=== PATIENT | male | born 1965 | race Two or more races ===

== ENCOUNTER 2016-09-28 09:51 | Inpatient (IN) | payer OTHER ==
[2016-09-28 10:21] VITALS: BMI 35.1
--- NOTE | 2016-09-28 13:07 | HP ---
COWS - Scale Resting Pulse: 1= [place] 81-100 Sweatin=Flushed/Facial Moisture Restless Observation: 1= Difficult to Sit Still Pupil Size: 0= Normal to Room Light Bone or Joint Aches: 2= Severe Diffuse Aches Runny Nose/ Eye Tearin= Runny Nose/Eyes GI Upset > 30mins: 2= Nausea/Diarrhea Tremor Observation: 2= Slight Tremor Visible Yawning Observation: 2= >3x During Session Anxiety or Irritability: 2=Irritable/Anxious Goose Flesh Skin: 3=Piloerection COWS Score: 19 Admission ROS S - HPI Chief Complaint: I am here to detox Allergies/Adverse Reactions: Allergies Allergy/AdvReac Type Severity Reaction Status Date / Time penicillin G Allergy Severe Hives Verified 09/28/16 11:02 History of Present Illness: pt is a Exam Limitations: No Limitations - Ebola screening Have you traveled outside of the country in the last 21 days: No Have you had contact with anyone from an Ebola affected area: No Have you been sick,other than usual withdrawal symptoms: No Do you have a fever: No - Review of Systems Constitutional: Chills, Diaphoresis, Night Sweats EENT: reports: Tearing, Nose Congestion Respiratory: reports: No Symptoms reported Cardiac: reports: No Symptoms Reported GI: reports: Constipated, Poor Appetite, Poor Fluid Intake : reports: No Symptoms Reported Musculoskeletal: reports: Back Pain, Joint Pain Integumentary: reports: Flushing, Sweating Neuro: reports: Tingling, Tremors Endocrine: reports: Excessive Sweating, Flushing, Intolerance to Cold, Intolerance to Heat Hematology: reports: No Symptoms Reported Psychiatric: reports: Judgement Intact, Mood/Affect Appropiate, Orientated x3, Agitated, Anxious Other Systems: Reviewed and Negative Patient History - Patient Medical History Hx Anemia: No Hx Asthma: Yes Hx Chronic Obstructive Pulmonary Disease (COPD): No Hx Cancer: No Hx Cardiac Disorders: No Hx Congestive Heart Failure: No Hx Hypertension: No Hx Hypercholesterolemia: No Hx Pacemaker: No HX Cerebrovascular Accident: No Hx Seizures: No Hx Dementia: No Hx Diabetes: No Hx Gastrointestinal Disorders: No Hx Liver Disease: No Hx Genitourinary Disorders: No Hx Sexually Transmitted Disorders: No Hx Renal Disease (ESRD): No Hx Thyroid Disease: No Hx Human Immunodeficiency Virus (HIV): No Hx Hepatitis C: No Hx Depression: Yes Hx Suicide Attempt: No Hx Bipolar Disorder: No Hx Schizophrenia: No Other Medical History: anxiety/ - Patient Surgical History Past Surgical History: No Hx Neurologic Surgery: No Hx Cataract Extraction: No Hx Cardiac Surgery: No Hx Lung Surgery: No Hx Breast Surgery: No Hx Breast Biopsy: No Hx Abdominal Surgery: No Hx Appendectomy: No Hx Cholecystectomy: No Hx Genitourinary Surgery: No Hx Section: No Hx Orthopedic Surgery: No Anesthesia Reaction: No - PPD History Previous Implant?: Yes Documented Results: Positive w/o proof Implanted On Prior [facility] Admission?: No - Reproductive History Patient is a Female of Child Bearing Age (11 -55 yrs old): No - Smoking Cessation Smoking history: Former smoker Have you smoked in the past 12 months: Yes Aproximately how many cigarettes per day: 6 If you are a former smoker, when did you quit?: 8 mos. ago Hx Chewing Tobacco Use: Yes Initiated information on smoking cessation: Yes 'Breaking Loose' booklet given: 09/28/16 - Substance & Tx. History Hx Alcohol Use: No Hx Substance Use: Yes Substance Use Type: Heroin Hx Substance Use Treatment: Yes - Substances Abused Heroin Route: Injection Frequency: Daily Amount used: 7-8 bags Age of first use: 22 Date of Last Use: 09/28/16 Family Disease History - Family Disease History Family History: Denies Admission Physical Exam S - Vital Signs Vital Signs: Vital Signs - 24 hr 09/28/16 10:18 Temperature 97.7 F Pulse Rate 93 H Respiratory 20 Rate Blood Pressure 111/71 - Physical General Appearance: Yes: Appropriately Dressed, Tremorous, Irritable, Sweating, Anxious HEENTM: Yes: Normal Voice Respiratory: Yes: Lungs Clear, Normal Breath Sounds, No Respiratory Distress Neck: Yes: No masses,lesions,Nodules Breast: Yes: Within Normal Limits Cardiology: Yes: Regular Rhythm, Regular Rate, S1, S2 Abdominal: Yes: Normal Bowel Sounds, Non Tender, Soft Genitourinary: Yes: Within Normal Limits Back: Yes: Normal Inspection Musculoskeletal: Yes: full range of Motion, Gait Steady Extremities: Yes: Normal Capillary Refill, Normal Inspection, Non-Tender, Tremors Neurological: Yes: Fully Oriented, Alert, Normal Response Integumentary: Yes: Normal Color, Diaphoresis, Track Pedraza Lymphatic: Yes: Within Normal Limits - Diagnostic (1) Opioid dependence with withdrawal Current Visit: Yes Status: Chronic (2) Asthma Current Visit: Yes Status: Chronic Qualifiers: Asthma severity: mild intermittent Asthma complication type: uncomplicated Qualified Code(s): J45.20 - Mild intermittent asthma, uncomplicated Cleared for Admission S - Detox or Rehab [facility] Level of Care: Medically Managed Detox Regimen/Protocol: Methadone S Breath Alcohol Content Breath Alcohol Content: 0 Urine Drug Screen - Results Drug Screen Negative: No Urine Drug Screen Results: OPI-Opiates, MTD-Methadone, OXY-Oxycodone
[2016-09-28] MEDS ORDERED: guaiFENesin/D-METHORPHAN HB 10 ML UNIT-DOSE CUPS PO PRN (13:22)
[2016-09-28] MEDS ORDERED: diphenhydrAMINE HCL 50 MG CAPSULE PO PRN (13:22)
[2016-09-28] MEDS ORDERED: IBUPROFEN 400 MG TABLET (FP) PO PRN (13:22)
[2016-09-28] MEDS ORDERED: MAGNESIUM CITRATE 300 ML BOTTLE PO PRN (13:22)
[2016-09-28] MEDS ORDERED: MAGNESIUM HYDROX 2400MG/30ML ORAL SUSPENSION 30 ML CUP PO PRN (13:22)
[2016-09-28] MEDS ORDERED: P-EPHED 60MG/TRIPROLIDI 2.5MG TABLET PO PRN (13:22)
[2016-09-28] MEDS ORDERED: MENTHOL/PHENOL 1 EACH UD MM PRN (13:22)
[2016-09-28] MEDS ORDERED: LOPERAMIDE HCL 2 MG CAPSULE PO PRN (13:22)
[2016-09-28] MEDS ORDERED: ACETAMINOPHEN 325 MG TABLET (FP) PO PRN (13:22)
[2016-09-28] MEDS ORDERED: MAG HYDROX/AL HYDROX/SIMETH 30 ML UNIT-DOSE CUP PO PRN (13:22)
[2016-09-28] MEDS ORDERED: ALBUTEROL SO4 6.7 GM HFA INHALER IH PRN (13:23)
[2016-09-28] MEDS ORDERED: METHADONE HCL 10 MG TABLET (FOR DETOX USE ONLY) PO ONE ×2 (13:45→23:00)
[2016-09-28] MEDS: diazePAM 5 MG TABLET PO PRN ×2 (14:20→18:44)
[2016-09-28 17:23] LABS: URINE APPEARANCE CLEAR; URINE BILIRUBIN NEGATIVE (NEGATIVE); URINE BLOOD NEGATIVE (NEGATIVE); URINE COLOR AMBER; URINE GLUCOSE (UA) NEGATIVE (NEGATIVE); URINE KETONE NEGATIVE (NEGATIVE); URINE LEUK ESTERASE NEGATIVE (NEGATIVE); URINE NITRITE NEGATIVE (NEGATIVE); URINE PROTEIN NEGATIVE (NEGATIVE); URINE UROBILINOGEN 2.0 E.U/dl E.U./dl (0.2-1.0)
[2016-09-28] MEDS: THIAMINE HCL 100 MG TABLET (FP) PO SCH (22:43)
--- NOTE | 2016-09-29 09:57 | CONSULT ---
[facility] Psychiatric Consult - Data Date of interview: 09/29/16 Admission source: [facility] Identifying data: This is 51 years old male with no psychiatric hospitalization history intoxicated with: Opioids Substance Abuse History: - Smoking Cessation. Smoking history: Former smoker. Have you smoked in the past 12 months: Yes. Aproximately how many cigarettes per day: 6. If you are a former smoker, when did you quit?: 8 mos. ago. Hx Chewing Tobacco Use: Yes. Initiated information on smoking cessation: Yes. ' Breaking Loose' booklet given: 09/28/16. - Substance & Tx. History. Hx Alcohol Use: No. Hx Substance Use: Yes. Substance Use Type: Heroin. Hx Substance Use Treatment: Yes. - Substances Abused. Heroin. Route: Injection. Frequency: Daily. Amount used: 7-8 bags. Age of first use: 22. Date of Last Use: 09/28/16 Medical History: Asthma Psychiatric History: Denies Physical/Sexual Abuse/Trauma History: Denies Additional Comment: Observation. Detox Unit Care Protocol Mental Status Exam - Mental Status Exam Alert and Oriented to: Person Cognitive Function: Fair Patient Appearance: Unkempt Mood: Sad Affect: Flat Patient Behavior: Sedated Speech Pattern: Delayed Voice Loudness: Mildly Soft/Quiet Thought Process: Circumstantial Thought Disorder: Being Controlled Hallucinations: Denies Suicidal Ideation: Denies Homicidal Ideation: Denies Insight/Judgement: Fair Sleep: Difficulty falling asleep Appetite: Weight loss Muscle strength/Tone: Mild Hypotonicity Gait/Station: Shuffling Additional Comments: Observation. Detox Unit Care Protocol Psychiatric Findings - Problem List ([place] 1, 2,3) (1) Opioid dependence with withdrawal Current Visit: Yes Status: Chronic (2) Opioid dependence Current Visit: Yes Status: Acute (3) Opioid-induced sleep disorder, insomnia type, with onset during discontinuation/withdrawal Current Visit: Yes Status: Acute (4) Opioid-induced mood disorder Current Visit: Yes Status: Suspected - Initial Treatment Plan Initial Treatment Plan: Observation. Detox Unit Care Protocol
[2016-09-29] MEDS ORDERED: METHADONE HCL 10 MG TABLET (FOR DETOX USE ONLY) PO ONE (10:00)
[2016-09-29 10:07] LABS: CALCIUM 8.9 mg/dL (8.5-10.1); CO2 30 mmol/L (21-32); GLUCOSE,RANDOM 121 mg/dL (74-106); MCH 27.8 pg (25.7-33.7); MCHC 33.6 g/dl (32.0-35.9); MEAN CELL VOLUME 82.7 fl (80-96); MEAN PLT VOLUME 8.1 fl (7.5-11.1); PLATELET COUNT 303 K/MM3 (134-434)
[2016-09-29] MEDS: diazePAM 5 MG TABLET PO PRN ×2 (10:21→22:15)
[2016-09-29] MEDS: PRENATAL VITAMINS W/ FOLIC ACID TABLET (FP) PO SCH (10:22)
--- NOTE | 2016-09-29 10:48 | PN ---
[facility] COWS - Scale Resting Pulse: 0= [place] 80 or Below Sweatin=Flushed/Facial Moisture Restless Observation: 1= Difficult to Sit Still Pupil Size: 0= Normal to Room Light Bone or Joint Aches: 2= Severe Diffuse Aches Runny Nose/ Eye Tearin= Runny Nose/Eyes GI Upset > 30mins: 2= Nausea/Diarrhea Tremor Observation of Outstretched Hands: 2= Slight Tremor Visible Yawning Observation: 2= >3x During Session Anxiety or Irritability: 2=Irritable/Anxious Goose Flesh Skin: 3=Piloerection COWS Score: 18 [facility] Progress Note (SOAP) Subjective: interrupted sleep agitation anxiety sweats irritable body aches shakes Objective: 09/29/16 10:48 Vital Signs Temperature 99.1 F 09/29/16 09:24 Pulse Rate 67 09/29/16 09:24 Respiratory Rate 16 09/29/16 09:24 Blood Pressure 125/64 09/29/16 09:24 O2 Sat by Pulse Oximetry (%) Laboratory Tests 09/28/16 09/29/16 09/29/16 13:50 06:00 06:00 WBC 8.0 RBC 5.21 Hgb 14.5 Hct 43.1 MCV 82.7 MCHC 33.6 RDW 13.0 Plt Count 303 MPV 8.1 Carbon Dioxide 30 BUN 16 Random Glucose 121 H Calcium 8.9 Urine Color Kecia Urine Appearance Clear Urine pH 5.0 Ur Specific [place] 1.029 Urine Protein Negative Urine Glucose (UA) Negative Urine Ketones Negative Urine Blood Negative Urine Nitrite Negative Urine Bilirubin Negative Urine Urobilinogen 2.0 e.u/dl Ur Leukocyte Esterase Negative labs pending awake/alert ambulating no acute distress Assessment: 09/29/16 10:48 withdrawal sx Plan: continue detox increase fluids labs pending
[2016-09-29 11:15] LABS: ALK PHOS 103 U/L (45-117); ANION GAP 7 (8-16); BILIRUBIN,TOTAL 0.6 mg/dL (0.2-1.0); CREATININE 0.9 mg/dL (0.7-1.3); SGOT/AST 32 U/L (15-37); SGPT/ALT 38 U/L (12-78); TOT PROT 7.9 g/dl (6.4-8.2)
[2016-09-29] MEDS: hydrOXYzine PAMOATE 50 MG CAPSULE (FP) PO PRN ×3 (12:52→22:15)
--- NOTE | 2016-09-29 17:19 | EKG ---
Test Reason : Blood Pressure : / mmHG Vent. Rate : 076 BPM Atrial Rate : 076 BPM P-R Int : 126 ms QRS Dur : 078 ms QT Int : 394 ms P-R-T Axes : 059 045 021 degrees QTc Int : 443 ms NORMAL SINUS RHYTHM NORMAL ECG NO PREVIOUS ECGS AVAILABLE Confirmed by PIERRE CORDON MD ([id number]) on 09/29/2016 5:19:29 PM Referred By: Zac Lezama Confirmed By:PIERRE CORDON MD
[2016-09-29] MEDS: THIAMINE HCL 100 MG TABLET (FP) PO SCH (22:14)
[2016-09-30] MEDS ORDERED: METHADONE HCL 5 MG TABLET (FOR DETOX USE ONLY) PO ONE (10:00)
[2016-09-30 10:12] VITALS: BP 128/82; PULSE 91; TEMP 98.8
[2016-09-30] MEDS: PRENATAL VITAMINS W/ FOLIC ACID TABLET (FP) PO SCH (10:15)
[2016-09-30] MEDS ORDERED: cloNIDine HCL 0.1 MG TABLET PO ONE (10:52)
[2016-09-30] MEDS ORDERED: CYCLOBENZAPRINE HCL 10 MG TABLET (FP) PO ONE (10:53)
--- NOTE | 2016-09-30 11:37 | PN ---
S COWS - Scale Resting Pulse: 0= [place] 80 or Below Sweatin= Chills/Flushing Restless Observation: 3= Extraneous Movement Pupil Size: 1= Pupils >than Normal Bone or Joint Aches: 2= Severe Diffuse Aches Runny Nose/ Eye Tearin= Runny Nose/Eyes GI Upset > 30mins: 2= Nausea/Diarrhea Tremor Observation of Outstretched Hands: 2= Slight Tremor Visible Yawning Observation: 2= >3x During Session Anxiety or Irritability: 2=Irritable/Anxious Goose Flesh Skin: 0=Smooth Skin COWS Score: 17 S Progress Note (SOAP) Subjective: ALERT,IRRITABLE,ANXIOUS,INTERRUPTED SLEEP,TREMOR,PAIN IN THE BODY AND BACK Objective: 09/30/16 11:35 Vital Signs Temperature 98.8 F 09/30/16 10:11 Pulse Rate 91 H 09/30/16 10:11 Respiratory Rate 20 09/30/16 10:11 Blood Pressure 128/82 09/30/16 10:11 O2 Sat by Pulse Oximetry (%) Laboratory Last Values WBC 8.0 K/mm3 (4.0-10.0) 09/29/16 06:00 RBC 5.21 M/mm3 (4.00-5.60) 09/29/16 06:00 Hgb 14.5 GM/dL (11.7-16.9) 09/29/16 06:00 Hct 43.1 % (35.4-49) 09/29/16 06:00 MCV 82.7 fl (80-96) 09/29/16 06:00 MCHC 33.6 g/dl (32.0-35.9) 09/29/16 06:00 RDW 13.0 % (11.9-15.9) 09/29/16 06:00 Plt Count 303 K/MM3 (134-434) 09/29/16 06:00 MPV 8.1 fl (7.5-11.1) 09/29/16 06:00 Sodium 138 mmol/L (136-145) 09/29/16 06:00 Potassium 4.1 mmol/L (3.5-5.1) 09/29/16 06:00 Chloride 101 mmol/L (98-107) 09/29/16 06:00 Carbon Dioxide 30 mmol/L (21-32) 09/29/16 06:00 Anion Gap 7 (8-16) L 09/29/16 06:00 BUN 16 mg/dL (7-18) 09/29/16 06:00 Creatinine 0.9 mg/dL (0.7-1.3) 09/29/16 06:00 Creat Clearance w eGFR > 60 (>60) 09/29/16 06:00 Random Glucose 121 mg/dL (74-106) H 09/29/16 06:00 Calcium 8.9 mg/dL (8.5-10.1) 09/29/16 06:00 Total Bilirubin 0.6 mg/dL (0.2-1.0) 09/29/16 06:00 AST 32 U/L (15-37) 09/29/16 06:00 ALT 38 U/L (12-78) 09/29/16 06:00 Alkaline Phosphatase 103 U/L (45-117) 09/29/16 06:00 Total Protein 7.9 g/dl (6.4-8.2) 09/29/16 06:00 Albumin 4.0 g/dl (3.4-5.0) 09/29/16 06:00 Urine Color Kecia 09/28/16 13:50 Urine Appearance Clear 09/28/16 13:50 Urine pH 5.0 (5.0-8.0) 09/28/16 13:50 Ur Specific [place] 1.029 (1.001-1.035) 09/28/16 13:50 Urine Protein Negative (NEGATIVE) 09/28/16 13:50 Urine Glucose (UA) Negative (NEGATIVE) 09/28/16 13:50 Urine Ketones Negative (NEGATIVE) 09/28/16 13:50 Urine Blood Negative (NEGATIVE) 09/28/16 13:50 Urine Nitrite Negative (NEGATIVE) 09/28/16 13:50 Urine Bilirubin Negative (NEGATIVE) 09/28/16 13:50 Urine Urobilinogen 2.0 e.u/dl E.U./dl (0.2-1.0) 09/28/16 13:50 Ur Leukocyte Esterase Negative (NEGATIVE) 09/28/16 13:50 RPR Titer Nonreactive (NONREACTIVE) 09/29/16 06:00 Assessment: 09/30/16 11:36 WITHDRAWAL SYMPTOM Plan: CONTINUE DETOX
--- NOTE | 2016-09-30 11:38 | PN ---
S Progress Note Note: PATIENT DID NOT WANT TO COMPLETE TREATMENT,SEEN BY COUNSELOR,SIGNED RELEASE AMA
--- NOTE | 2016-09-30 11:41 | DS ---
[facility] Detox Discharge Summary Admission Date: 09/28/16 Discharge Date: 09/30/16 - History Present History: Opioid Dependence Additional Comments: PATIENT DID NOT WANT TO COMPLETE TREATMENT,SIGNED RELEASE AMA,SEEN BY COUNSELOR Pertinent Past History: ASTHMA - Physical Exam Results Vital Signs: Vital Signs Temperature 98.8 F 09/30/16 10:11 Pulse Rate 91 H 09/30/16 10:11 Respiratory Rate 20 09/30/16 10:11 Blood Pressure 128/82 09/30/16 10:11 O2 Sat by Pulse Oximetry (%) Pertinent Admission Physical Exam Findings: WITHDRAWAL SYMPTOM - Treatment Patient has Accepted a Rehab Referral to: DECL[facility]ED - Medication Discharge Medications: Ambulatory Orders Albuterol Sulfate Inhaler - [Ventolin Hfa Inhaler -] 2 inh PO Q4H PRN 09/28/16 - AMA Did Patient Leave Against Medical Advice: Yes
[2016-10-01] MEDS ORDERED: METHADONE HCL 5 MG TABLET (FOR DETOX USE ONLY) PO ONE (10:00)
[2016-10-02] MEDS ORDERED: METHADONE HCL 10 MG TABLET (FOR DETOX USE ONLY) PO ONE (10:00)
[2016-10-03] MEDS ORDERED: METHADONE HCL 5 MG TABLET (FOR DETOX USE ONLY) PO ONE (06:00)
== END 2016-09-30 11:40 | disposition left against medical advice (07) | DRG 770 ==
LOC: YASAS 09:51 → Y6N 11:55
PROVIDERS: ADMIT Internal Medicine Addiction Medicine; ATTEND Internal Medicine Addiction Medicine
PROC: HZ2ZZZZ Detoxification Services for Substance Abuse Treatment (ICD-10-PCS; principal; 2016-09-30)
DX: F11.23 Opioid dependence with withdrawal (principal); F19.282 Other psychoactive substance dependence with psychoactive substance-induced sleep disorder; F19.24 Other psychoactive substance dependence with psychoactive substance-induced mood disorder
CPT/HCPCS: 36415; 71020-TC; 80053; 81003; 85027; 86593; 93005; 93010

== ENCOUNTER 2020-04-29 14:13 | Emergency (ER) | payer OTHER ==
--- NOTE | 2020-04-29 14:21 | PDOC ---
Rapid Medical Evaluation Time Seen by Provider: 04/29/20 14:15 Medical Evaluation: Allergies Allergy/AdvReac Type Severity Reaction Status Date / Time penicillin G Allergy Severe Hives Verified 09/28/16 11:02 04/29/20 14:15 HPI: COVID-19 CDC guideline data points: The patient is a 55yo M presents with suspected COVID-19 with associated symptoms of subjective fever, dry cough, SOB, complicated by this/these comorbidities: Asthma. ROS: NEGATIVE: difficulty breathing, shortness of breath, chest pain, lightheadedness, dizziness, nausea, vomiting and diarrhea. Other 12 point ROS reviewed and negative. Exam: General: NAD, Well-Appearing, Awake, Alert Oriented x3. Vital signs stable. ENT: No rhinorrhea or nasal congestion. Neck: FROM, no midline tenderness. Lungs: Clear to auscultation bilaterally without wheezes, rhonchi or rales. Normal excursion. Patient is able to speak in full sentences. SpO2-100% Heart: HR: 99. Regular rhythm, S1-S2 present, no murmurs rubs or gallops. Abdomen: Non-distended. MSK/Extremities: No decrease ROM, No obvious deformities. No obvious cyanosis noted. Neuro: Normal Gait, Cranial Nerves II through XII Grossly Intact. Skin: No obvious rashes, bruising. Color Normal Appearing. Assessment/Plan: Cough/fever Patient has a history of this/these comorbidities: asthma, denies recent travel and known COVID exposure. Patient meets testing criteria at this time. ASSESSMENT: Denies recent travel and known Covid exposure. Treatment: Covid-19 testing. Covid counseling provided. Discharge 04/29/20 14:20 Discharge Disposition - Diagnosis Counseled about COVID-19 virus infection URI (upper respiratory infection) Qualifiers: URI type: unspecified URI Qualified Code(s): J06.9 - Acute upper respiratory infection, unspecified - Discharge Dispostion Disposition: HOME Condition at time of disposition: Fair Decision to Admit order: No - Referrals - Patient Instructions Printed Discharge Instructions: DI for Viral Upper Respiratory Infection -- Adult Additional Instructions: You were seen for your cough and possible Coronavirus (COVID-19) Take Tylenol 650 mg every 6 hours as needed for fever or pain. You may take Robitussin or other [id number] cough syrup. Follow the dosing instructions on the bottle. Warm tea, honey, and salt water gargles may help your symptoms. Please take precautions and self quarantine until your Covid results and follow-up with your primary care doctor. Return to the nearest emergency department for shortness of breath, difficulty breathing, chest pain, or if you have any changes in your symptoms. - Post Discharge Activity Work/School Note: Back to Work
[2020-04-29 14:39] VITALS: BP 143/76; PULSE 99; TEMP 98.2; BMI 36.9
--- OUTSIDE RECORDS SUMMARY | 2020-04-29 14:42 | XMS ---
:1965 Author Organization [facility] Care Team Providers Name Role Phone HHHVCC, HVC9 Unavailable Unavailable HHCCC, CNR9 Unavailable Unavailable ED STAFF PHYSICIAN, STAFF Unavailable Unavailable ED STAFF PHYSICIANSOLEDAD Unavailable Unavailable ED STAFF PHYSICIAN Unavailable Unavailable Re-disclosure Warning The records that you are about to access may contain information from federally- assisted alcohol or drug abuse programs. If such information is present, then the following federally mandated warning applies: This information has been disclosed to you from records protected by federal confidentiality rules (42 CFR part 2). The federal rules prohibit you from making any further disclosure of this information unless further disclosure is expressly permitted by the written consent of the person to whom it pertains or as otherwise permitted by 42 CFR part 2. A general authorization for the release of medical or other information is NOT sufficient for this purpose. The Federal rules restrict any use of the information to criminally investigate or prosecute any alcohol or drug abuse patient.The records that you are about to access may contain highly sensitive health information, the redisclosure of which is protected by Article 27-F of the [facility] Public Health law. If you continue you may haveaccess to information: Regarding HIV / AIDS; Provided by facilities licensed or operated by the [facility] Office of Mental Health; or Provided by the [facility] Office for People With Developmental Disabilities. If such information is present, then the following [facility] mandated warning applies: This information has been disclosed to you from confidential records which are protected by state law. State law prohibits you from making any further disclosure of this information without the specific written consent of the person to whom it pertains, or as otherwise permitted by law. Any unauthorized further disclosure in violation of state law may result in a fine or senior care sentence or both. A general authorization for the release of medical or other information is NOT sufficient authorization for further disclosure. Encounters Encounter Providers Location Date Indications Data Source(s ) [facility]: [facility] 12[facility]44:23 AM [facility] Patient admitted. Outpatient Att[facility]: CNR9 [facility] 12:44:14 AM [facility] ([facility]) Patient admitted. Outpatient Attender: CNR9 [facility] 10/15/2019 12:42:49 AM [facility] ([facility]) Patient admitted. Outpatient Attender: CNR9 [facility] 10/15/2019 12:41:18 AM [facility] ([facility]) Patient admitted. Outpatient Attender: HVC9 H[facility]VCC 08/27/2019 01:40:48 PM [facility] ([facility]) Patient admitted. Emergency Attender: SOLEDAD ED STAFF H 07/02/2019 12:14:00 PM [facility] PHYSICIANAttender: ED STAFF EST - 07/02/2019 [facility] PHYSICIANAttender: STAFF ED 06:32:00 PM EST STAFF PHYSICIANAdmitter: SOLEDAD ED STAFF PHYSICIAN Patient discharged. Emergency H 03/08/2019 11:15:00 AM EDT - [address] [place] [address] 01:55:00 PM EDT Patient discharged. Insurance Providers Payer name Policy type Policy ID Covered Covered libertarian's Policy P melissa / Coverage libertarian ID relationship to [employer] Inf ormation type sparrow AFFINITY [id number] SP [id number] AFFINITY O [id number] 01 [id number] HEALTH PLAN Dental [id number] S [id number] [employer] [place] [id number] S [id number] Vision D [place] [facility] [id number] S [id number] Options [facility] Medicaid [id number] S [id number] Managed Care Medicaid [id number] S [id number] Regular Clinic Visit Problems, Conditions, and Diagnoses Code Display Name Description Problem Type Effective Data Sour ce(s) Dates F17.210 Nicotine NICOTINE Diagnosis 07/02/2019 [facility] dependence, DEPENDENCE, 12:14:[address] cigarettes, CIGARETTES, EST uncomplicated UNCOMPLICATED I10 Essential ESSENTIAL Diagnosis 07/02/2019 [facility] (primary[facility] (PRIMARY) 12:14:00 PM [facility] hypertension HYPERTENSION EST J45.909 Unspecified UNSPECIFIED Diagnosis 07/02/2019 [facility] asthma, ASTHMA, 12:14:00 PM [facility] Cent[facility] r uncomplicated UNCOMPLICATED EST J40 Bronchitis, not BRONCHITIS, NOT Diagnosis 07/02/2019 [facility] specified as acute SPECIFIED ACUTE 12:14:00 PM Medical Center or chronic OR CHRONIC EST R53.1 Weakness WEAKNESS Diagnosis 07/02/2019 [facility] 12:14:00 PM Medical Cent[facility] r EST Z72.0 Tobacco use TOBACCO USE Diagnosis 03/08/2019 [facility] 11:15:00 AM Medical Cente r EDT R09.81 Nasal congestion NASAL CONGESTION Diagnosis 03/08/2019 [facility] 11:15:00 AM Medical Cente r EDT Results ID Date Data Source [id number] 02/12/2020 12:00:00 AM EDT [facility] Name Value Range Interpretation Code Description Data Irina rce(s) Supporting Document(s ) [facility] IVAN+probe- Imp This lab was ordered by STEPHANIE Jaquez and reported by [employer] ID Date Data Source Liver 07/02/2019 01:20:00 PM EST [facility] Profile.[id number] Name Value Range Interpretation Description Data Sup porting Code Source(s) Document(s ) Alanine 7-50 Above high <content Saint aminotransferase normal styleCode="Bold"> Luis hs [Enzymatic Alanine Medical activity/volume] Aminotransferase Center in Serum or Plasma (ALT) </content>63 IU/L H<content styleCode="Italic s"> (7-50 IU/L)</content> Alkaline 38-126 <content [facility] phosphatase styleCode="Bold"> [facility] [Enzymatic Alkaline Medical activity/volume] Phosphatase (ALP) Cente r in Serum or Plasma </content>91 IU/L<content styleCode="Italic s"> (38-126 IU/L)</content> Aspartate 17-59 Above high <content [facility] aminotransferase normal styleCode="Bold"> [facility] hs [Enzymatic Aspartate Medical activity/volume] Aminotransferase Center in Serum or Plasma (AST) </content>75 IU/L H<content styleCode="Italic s"> (17-59 IU/L)</content> Albumin 3.5-5.0 <content Saint [Mass/volume] in styleCode="Bold"> Luis hs Serum or Plasma Albumin Medical </content>4.4 Center G/DL<content styleCode="Italic s"> (3.5-5.0 G/DL)</content> UNK 0.0-0.3 <content Saint styleCode="Bold"> [facility] Bilirubin, Direct Medical </content>< 0.2 Center MG/DL<content styleCode="Italic s"> (0.0-0.3 MG/DL)</content> Bilirubin.total 0.2-1.3 <content Saint [Mass/volume] in styleCode="Bold"> Luis hs Serum or Plasma Bilirubin Total Medical </content>0.7 Center MG/DL<content styleCode="Italic s"> (0.2-1.3 MG/DL)</content> ID Date Data Source HematologyRou.[id number] 07/02/2019 01:20:00 [facility] Name Value Range Interpretation Description Data Sup porting Code Source(s) Document(s ) Leukocytes 4.4-11.0 <content Saint [#/volume] in styleCode="Bold [facility] Blood by ">White Blood Medical Automated count Cell Count Center </content>6.54 KCUMM<content styleCode="Ital ics"> (4.4-11.0 KCUMM)</content > Hemoglobin 13.5-17. <content Saint [Mass/volume] in 5 styleCode="Bold [facility] Blood ">Hemoglobin Medical </content>14.7 Center G/DL<content styleCode="Ital ics"> (13.5-17.5 G/DL)</content> Erythrocytes 4.4-5.9 <content Saint [#/volume] in styleCode="Bold [facility] Blood by ">Red Blood Medical Automated count Cell Count Center </content>5.23 MCUMM<content styleCode="Ital ics"> (4.4-5.9 MCUMM)</content > Platelets 130-400 <content Saint [#/volume] in styleCode="Bold [facility] Blood by ">Platelet Medical Automated count Count Center </content>243 KCUMM<content styleCode="Ital ics"> (130-400 KCUMM)</content > Erythrocyte mean 32.0-37. <content Saint corpuscular 0 styleCode="Bold [facility] hemoglobin ">Mean Corpus. Medical concentration Hgb Center [Mass/volume] by Concentration Automated count (MCHC) </content>32.7 G/DL<content styleCode="Ital ics"> (32.0-37.0 G/DL)</content> Erythrocyte mean 80.0-100 <content Saint corpuscular .0 styleCode="Bold [facility] volume [Entitic ">Mean Medical volume] by Corpuscular Center Automated count Volume </content>86.0 FL<content styleCode="Ital ics"> (80.0-100.0 FL)</content> Erythrocyte mean 26.0-34. <content [facility] corpuscular 0 styleCode="Bold [facility] hemoglobin ">Mean Medical [Entitic mass] Corposcular Center by Automated Hemoglobin count </content>28.1 PG<content styleCode="Ital ics"> (26.0-34.0 PG)</content> Erythrocyte 11.5-14. <content Saint distribution 5 styleCode="Bold [facility] width [Ratio] by ">Red Cell Medical Automated count Distribution Center Width </content>12.3 %<content styleCode="Ital ics"> (11.5-14.5 %)</content> Hematocrit 41.0-53. <content Saint [Volume 0 styleCode="Bold [facility] Fraction] of ">Hematocrit Medical Blood by </content>45.0 Center Automated count %<content styleCode="Ital ics"> (41.0-53.0 %)</content> UNK 0 <content Saint styleCode="Bold [facility] ">Nucleated Red Medical Blood Cell Center </content>0.0 /100<content styleCode="Ital ics"> (0 /100)</content> UNK 0.0 <content Saint styleCode="Bold Morris ">Nucleated Red Medical Blood Cell Center Count </content>0.00 KCUMM<content styleCode="Ital ics"> (0.0 KCUMM)</content > Platelet mean 8.0-11.0 <content Saint volume [Entitic styleCode="Bold Morris volume] in Blood ">Mean Platelet Medical by Automated Volume Center count </content>9.3 FL<content styleCode="Ital ics"> (8.0-11.0 FL)</content> ID Date Data Source GFR(Creatinine).[id number] 07/02/2019 01:20:00 PM EST Karl nt [facility] 0-0500 Name Value Range Interpretation Code Description Data Irina rce(s) Supporting Document(s ) UNK > 60 <content [facility] styleCode="Bold"> Medical Cent er EGFR </content>108 GFR<content styleCode="Italic s"> (> 60 GFR)</content> ID Date Data Source Coagulation 07/02/2019 01:20:00 PM [facility] ical Center Rout.[id number] EST Name Value Range Interpretation Description Data Sup porting Code Source(s) Document(s ) UNK < 500 <content styleCode="Bold" Morris >D-Dimer Medical </content>405 Center ngFEU<content styleCode="Itali cs"> (< 500 ngFEU)</content> UNK 9.0-13.0 <content styleCode="Bold" Morris >Protime Medical </content>11.9 Center SEC<content styleCode="Itali cs"> (9.0-13.0 SEC)</content> aPTT in 25.1-36. <content Saint Platelet poor 5 styleCode="Bold" [facility] plasma by >Partial Medical Coagulation Thromboplastin Center assay Time </content>29.2 SEC<content styleCode="Itali cs"> (25.1-36.5 SEC)</content> INR in 0.80-1.2 <content Saint Platelet poor 0 styleCode="Bold" [facility] plasma by >INR Medical Coagulation </content>1.07 Center assay #<content styleCode="Itali cs"> (0.80-1.20 #)</content> ID Date Data Source CardiacMarkers.[id number] 07/02/2019 01:20:00 PM MARTHA collins [facility] -0500 Name Value Range Interpretation Description Data Sup porting Code Source(s) Document(s ) Troponin < 0.034 <content Saint I.cardiac styleCode="Bold Morris [Mass/volume ">Troponin I Medical ] in Serum </content>< Center or Plasma 0.012 NG/ML<content styleCode="Ital ics"> (< 0.034 NG/ML)</content > ID Date Data Source BMP.[id number] 07/02/2019 01:20:00 PM EST [facility] Name Value Range Interpretation Description Data Sup porting Code Source(s) Document(s ) Sodium 137-145 <content Saint [Moles/volume] in styleCode="Bold"> [facility] Serum or Plasma Sodium Medical </content>138 Center MEQ/L<content styleCode="Italic s"> (137-145 MEQ/L)</content> Creatinine 0.5-1.3 <content Saint [Mass/volume] in styleCode="Bold"> [facility] Serum or Plasma Creatinine Medical </content>0.8 Center MG/DL<content styleCode="Italic s"> (0.5-1.3 MG/DL)</content> UNK 9-20 <content Saint styleCode="Bold"> [facility] BUN </content>16 Medical MG/DL<content Center styleCode="Italic s"> (9-20 MG/DL)</content> Chloride 98-107 <content Saint [Moles/volume] in styleCode="Bold"> [facility] Serum or Plasma Chloride Medical </content>98 Center MEQ/L<content styleCode="Italic s"> (98-107 MEQ/L)</content> Potassium 3.5-5.3 <content Saint [Moles/volume] in styleCode="Bold"> [facility] Serum or Plasma Potassium Medical </content>4.5 Center MEQ/L<content styleCode="Italic s"> (3.5-5.3 MEQ/L)</content> Carbon dioxide, 22-30 Above high <content Saint total normal styleCode="Bold"> [facility] [Moles/volume] in Carbon Dioxide Medical Serum or Plasma </content>33 Center MEQ/L H<content styleCode="Italic s"> (22-30 MEQ/L)</content> Aspartate 17-59 Above high <content [facility] aminotransferase normal styleCode="Bold"> [facility] hs [Enzymatic Aspartate Medical activity/volume] Aminotransferase Center in Serum or Plasma (AST) </content>75 IU/L H<content styleCode="Italic s"> (17-59 IU/L)</content> Glucose 74-106 <content Saint [Mass/volume] in styleCode="Bold"> Luis hs Serum or Plasma Glucose Medical </content>103 Center MG/DL<content styleCode="Italic s"> (74-106 MG/DL)</content> Calcium 8.4-10. <content Saint [Mass/volume] in 2 styleCode="Bold"> Luis hs Serum or Plasma Calcium Medical </content>9.3 Center MG/DL<content styleCode="Italic s"> (8.4-10.2 MG/DL)</content> Alkaline 38-126 <content Saint phosphatase styleCode="Bold"> [facility] [Enzymatic Alkaline Medical activity/volume] Phosphatase (ALP) Cente r in Serum or Plasma </content>91 IU/L<content styleCode="Italic s"> (38-126 IU/L)</content> UNK > 60 <content Saint styleCode="Bold"> [facility] EGFR Medical </content>108 Center GFR<content styleCode="Italic s"> (> 60 GFR)</content> Alanine 7-50 Above high <content Saint aminotransferase normal styleCode="Bold"> Luis hs [Enzymatic Alanine Medical activity/volume] Aminotransferase Center in Serum or Plasma (ALT) </content>63 IU/L H<content styleCode="Italic s"> (7-50 IU/L)</content> Albumin 3.5-5.0 <content Saint [Mass/volume] in styleCode="Bold"> Luis hs Serum or Plasma Albumin Medical </content>4.4 Center G/DL<content styleCode="Italic s"> (3.5-5.0 G/DL)</content> Bilirubin.total 0.2-1.3 <content Saint [Mass/volume] in styleCode="Bold"> Luis hs Serum or Plasma Bilirubin Total Medical </content>0.7 Center MG/DL<content styleCode="Italic s"> (0.2-1.3 MG/DL)</content> ID Date Data Source Liver 03/08/2019 11:40:00 AM EDT [facility] Profile.[id number] Name Value Range Interpretation Description Data Sup porting Code Source(s) Document(s ) Alanine 7-50 <content [facility] aminotransferase styleCode="Bold"> Luis hs [Enzymatic Alanine Medical activity/volume] Aminotransferase Center in Serum or Plasma (ALT) </content>29 IU/L<content styleCode="Italic s"> (7-50 IU/L)</content> Aspartate 17-59 <content Saint aminotransferase styleCode="Bold"> Luis hs [Enzymatic Aspartate Medical activity/volume] Aminotransferase Center in Serum or Plasma (AST) </content>34 IU/L<content styleCode="Italic s"> (17-59 IU/L)</content> Alkaline 38-126 <content Saint phosphatase styleCode="Bold"> [facility] [Enzymatic Alkaline Medical activity/volume] Phosphatase (ALP) Cente r in Serum or Plasma </content>92 IU/L<content styleCode="Italic s"> (38-126 IU/L)</content> Bilirubin.total 0.2-1.3 <content Saint [Mass/volume] in styleCode="Bold"> Luis hs Serum or Plasma Bilirubin Total Medical </content>0.4 Center MG/DL<content styleCode="Italic s"> (0.2-1.3 MG/DL)</content> Albumin 3.5-5.0 <content Saint [Mass/volume] in styleCode="Bold"> Luis hs Serum or Plasma Albumin Medical </content>4.1 Center G/DL<content styleCode="Italic s"> (3.5-5.0 G/DL)</content> ID Date Data Source HematologyRou.[id number] 03/08/2019 11:40:00 AM EDT Karl [facility] 0400 Name Value Range Interpretation Description Data Sup porting Code Source(s) Document(s ) Erythrocytes 4.4-5.9 <content Saint [#/volume] in styleCode="Bold [facility] Blood by ">Red Blood Medical Automated count Cell Count Center </content>5.06 MCUMM<content styleCode="Ital ics"> (4.4-5.9 MCUMM)</content > Leukocytes 4.4-11.0 <content Saint [#/volume] in styleCode="Bold [facility] Blood by ">White Blood Medical Automated count Cell Count Center </content>6.67 KCUMM<content styleCode="Ital ics"> (4.4-11.0 KCUMM)</content > Hemoglobin 13.5-17. <content Saint [Mass/volume] in 5 styleCode="Bold [facility] Blood ">Hemoglobin Medical </content>14.3 Center G/DL<content styleCode="Ital ics"> (13.5-17.5 G/DL)</content> Erythrocyte mean 26.0-34. <content Saint corpuscular 0 styleCode="Bold [facility] hemoglobin ">Mean Medical [Entitic mass] Corposcular Center by Automated Hemoglobin count </content>28.3 PG<content styleCode="Ital ics"> (26.0-34.0 PG)</content> Hematocrit 41.0-53. <content Saint [Volume 0 styleCode="Bold [facility] Fraction] of ">Hematocrit Medical Blood by </content>43.1 Center Automated count %<content styleCode="Ital ics"> (41.0-53.0 %)</content> Platelets 130-400 <content Saint [#/volume] in styleCode="Bold [facility] Blood by ">Platelet Medical Automated count Count Center </content>248 KCUMM<content styleCode="Ital ics"> (130-400 KCUMM)</content > Erythrocyte 11.5-14. <content Saint distribution 5 styleCode="Bold Morris width [Ratio] by ">Red Cell Medical Automated count Distribution Center Width </content>12.5 %<content styleCode="Ital ics"> (11.5-14.5 %)</content> Erythrocyte mean 32.0-37. <content Saint corpuscular 0 styleCode="Bold Morris hemoglobin ">Mean Corpus. Medical concentration Hgb Center [Mass/volume] by Concentration Automated count (MCHC) </content>33.2 G/DL<content styleCode="Ital ics"> (32.0-37.0 G/DL)</content> Erythrocyte mean 80.0-100 <content Saint corpuscular .0 styleCode="Bold Morris volume [Entitic ">Mean Medical volume] by Corpuscular Center Automated count Volume </content>85.2 FL<content styleCode="Ital ics"> (80.0-100.0 FL)</content> UNK 0 <content Saint styleCode="Bold Morris ">Nucleated Red Medical Blood Cell Center </content>0.0 /100<content styleCode="Ital ics"> (0 /100)</content> Platelet mean 8.0-11.0 <content Saint volume [Entitic styleCode="Bold [facility] volume] in Blood ">Mean Platelet Medical by Automated Volume Center count </content>8.9 FL<content styleCode="Ital ics"> (8.0-11.0 FL)</content> UNK 0.0 <content Saint styleCode="Bold Morris ">Nucleated Red Medical Blood Cell Center Count </content>0.00 KCUMM<content styleCode="Ital ics"> (0.0 KCUMM)</content > ID Date Data Source GFR(Creatinine).[id number] 03/08/2019 11:40:00 AM EDT Karl [facility] 0-0400 Name Value Range Interpretation Code Description Data Irina rce(s) Supporting Document(s ) UNK > 60 <content [facility] styleCode="Bold"> Medical Cent er EGFR </content>108 GFR<content styleCode="Italic s"> (> 60 GFR)</content> ID Date Data Source CHMROUTINECCDA.[id number] 03/08/2019 11:40:00 AM EDT [facility] -0400 Name Value Range Interpretation Description Data Sup porting Code Source(s) Document(s ) UNK 2.3-3.5 Above high normal <content [place] s styleCode="Bold Medical ">Globulin Center </content>4.0 G/DL H<content styleCode="Ital ics"> (2.3-3.5 G/DL)</content> UNK >= 1.0 <content [facility] styleCode="Bold Medical ">AG Ratio Center </content>1.0 <content styleCode="Ital ics"> (>= 1.0 )</content> Protein 6.3-8.2 <content [facility] [Mass/volum styleCode="Bold Medical e] in Serum ">Total Protein Center or Plasma </content>8.1 G/DL<content styleCode="Ital ics"> (6.3-8.2 G/DL)</content> Lactate 0.7-2.0 <content [facility] [Mass/volum styleCode="Bold Medical e] in Serum ">Lactic Acid Center or Plasma </content>1.9 MMOLL<content styleCode="Ital ics"> (0.7-2.0 MMOLL)</content > ID Date Data Source CardiacMarkers.[id number] 03/08/2019 11:40:00 AM EDT [facility] -0400 Name Value Range Interpretation Description Data Sup porting Code Source(s) Document(s ) Troponin < 0.034 <content Saint I.cardiac styleCode="Bold [facility] [Mass/volume ">Troponin I Medical ] in Serum </content>< Center or Plasma 0.012 NG/ML<content styleCode="Ital ics"> (< 0.034 NG/ML)</content > ID Date Data Source BMP.[id number] 03/08/2019 11:40:00 AM EDT [facility] Name Value Range Interpretation Description Data Sup porting Code Source(s) Document(s ) Potassium 3.5-5.3 <content Saint [Moles/volume] in styleCode="Bold"> Zac phs Serum or Plasma Potassium Medical </content>4.4 Center MEQ/L<content styleCode="Italic s"> (3.5-5.3 MEQ/L)</content> Carbon dioxide, 22-30 Above high <content Saint total normal styleCode="Bold"> Morris [Moles/volume] in Carbon Dioxide Medical Serum or Plasma </content>32 Center MEQ/L H<content styleCode="Italic s"> (22-30 MEQ/L)</content> Sodium 137-145 <content Saint [Moles/volume] in styleCode="Bold"> Zac phs Serum or Plasma Sodium Medical </content>143 Center MEQ/L<content styleCode="Italic s"> (137-145 MEQ/L)</content> Chloride 98-107 <content Saint [Moles/volume] in styleCode="Bold"> Zac phs Serum or Plasma Chloride Medical </content>102 Center MEQ/L<content styleCode="Italic s"> (98-107 MEQ/L)</content> Calcium 8.4-10. <content Saint [Mass/volume] in 2 styleCode="Bold"> Luis hs Serum or Plasma Calcium Medical </content>9.2 Center MG/DL<content styleCode="Italic s"> (8.4-10.2 MG/DL)</content> Glucose 74-106 Above high <content Saint [Mass/volume] in normal styleCode="Bold"> Luis hs Serum or Plasma Glucose Medical </content>136 Center MG/DL H<content styleCode="Italic s"> (74-106 MG/DL)</content> UNK 9-20 <content Saint styleCode="Bold"> Morris BUN </content>12 Medical MG/DL<content Center styleCode="Italic s"> (9-20 MG/DL)</content> Aspartate 17-59 <content Saint aminotransferase styleCode="Bold"> Luis hs [Enzymatic Aspartate Medical activity/volume] Aminotransferase Center in Serum or Plasma (AST) </content>34 IU/L<content styleCode="Italic s"> (17-59 IU/L)</content> UNK > 60 <content Saint styleCode="Bold"> [facility] EGFR Medical </content>108 Center GFR<content styleCode="Italic s"> (> 60 GFR)</content> Creatinine 0.5-1.3 <content Saint [Mass/volume] in styleCode="Bold"> Luis hs Serum or Plasma Creatinine Medical </content>0.8 Center MG/DL<content styleCode="Italic s"> (0.5-1.3 MG/DL)</content> Albumin 3.5-5.0 <content Saint [Mass/volume] in styleCode="Bold"> Luis hs Serum or Plasma Albumin Medical </content>4.1 Center G/DL<content styleCode="Italic s"> (3.5-5.0 G/DL)</content> Alkaline 38-126 <content Saint phosphatase styleCode="Bold"> [facility] [Enzymatic Alkaline Medical activity/volume] Phosphatase (ALP) Cente r in Serum or Plasma </content>92 IU/L<content styleCode="Italic s"> (38-126 IU/L)</content> Alanine 7-50 <content Saint aminotransferase styleCode="Bold"> Luis hs [Enzymatic Alanine Medical activity/volume] Aminotransferase Center in Serum or Plasma (ALT) </content>29 IU/L<content styleCode="Italic s"> (7-50 IU/L)</content> Bilirubin.total 0.2-1.3 <content Saint [Mass/volume] in styleCode="Bold"> Luis hs Serum or Plasma Bilirubin Total Medical </content>0.4 Center MG/DL<content styleCode="Italic s"> (0.2-1.3 MG/DL)</content> Procedure Social History Code Duration Value Status Description Data Source(s ) Smoking 07/02/2019 01:20:00 Daily Smoker completed Daily Smoker S [facility] EST Center Smoking 07/02/2019 12:20:00 Daily Smoker completed Daily Smoker S [facility] EST Center Smoking 07/02/2019 12:17:00 Daily Smoker completed Daily Smoker S [facility] EST Center Smoking 03/08/2019 11:20:00 Daily Smoker completed Daily Smoker S [facility] EDT Center Smoking 03/08/2019 11:18:00 Daily Smoker completed Daily Smoker S [facility] EDT Center Smoking 03/08/2019 11:18:00 Daily Smoker completed Daily Smoker S [facility] EDT Center Vital Signs ID Date Data Source UNK Name Value Range Interpretation Code Description Data Source(s) Body temperature 36.368903 [id number] [facility] [facility] Respiratory rate 18 /min 18 /min [facility] Oxygen saturation 97 % 97 % [facility] Arterial blood [facility] by Pulse oximetry Heart rate 88 /min 88 /min [facility] Diastolic blood 81 mm[Hg] 81 mm[Hg] [facility] Systolic blood 152 mm[Hg] 152 mm[Hg] [facility] Body temperature 36.302832 [id number] [facility] Respiratory rate 18 /min 18 /min [facility] Heart rate 90 /min 90 /min [facility] Diastolic blood 82 mm[Hg] 82 mm[Hg] [facility] pressure [facility] Systolic blood 150 mm[Hg] 150 mm[Hg] [facility] Body weight 110.240858 110.449021 kg [facility] Measured kg [facility] [place] Body temperature 36.343382 36.333499 [facility] Respiratory rate 19 /min 19 /min [facility] Oxygen saturation 98 % 98 % [facility] Arterial blood [facility] by Pulse oximetry Heart rate 89 /min 89 /min [facility] Body height 185.206715 185.890455 cm [facility] [place] Diastolic blood 97 mm[Hg] 97 mm[Hg] [facility] Systolic blood 155 mm[Hg] 155 mm[Hg] [facility] Body mass index 31.9 kg/m2 31.9 kg/m2 [facility] (BMI) [Ratio] Medical [facility] ter Body temperature 36.459656 36.014302 [facility] Respiratory rate 18 /min 18 /min [facility] Oxygen saturation 98 % 98 % [facility] in Arterial blood [facility] [place] by Pulse oximetry Heart rate 69 /min 69 /min [facility] Diastolic blood 74 mm[Hg] 74 mm[Hg] [facility] pressure [facility] [place] Systolic blood 143 mm[Hg] 143 mm[Hg] [facility] pressure [facility] [place] Body weight 114.141285 114.551007 kg [facility] Measured kg [facility] Body temperature 36.094608 36.381836 [facility] Respiratory rate 18 /min 18 /min [facility] Oxygen saturation 98 % 98 % [facility]phs in Arterial blood [facility] by Pulse oximetry Heart rate 90 /min 90 /min [facility] Diastolic blood 126 mm[Hg] 126 mm[Hg] [facility] pressure [facility] Systolic blood 200 mm[Hg] 200 mm[Hg] [facility] pressure [facility]
== END 2020-04-29 14:45 ==
LOC: JER 14:13
DX: J06.9 Acute upper respiratory infection, unspecified (principal)
CPT/HCPCS: 99283-25; C9803; U0003